=== PATIENT | female | born 1970 | race Caucasian/White ===

== ENCOUNTER → 2016-11-14 | Outpatient (CLI) | payer OTHER ==
[~2016-11-14] MED LIST: CLTP PO; FRRG PO; MEDLIST; PROM25TA PO; TETR250C3 PO
== END | disposition home or self-care (01) ==
LOC: C.PATHSPEC 14:27
PROVIDERS: ATTEND Dermatology
DX: C43.9 Malignant melanoma of skin, unspecified (principal); L82.1 Other seborrheic keratosis

== ENCOUNTER → 2017-03-15 | Outpatient (CLI) | payer OTHER | END | disposition home or self-care (01) | LOC: C.PAPS 09:09 | PROVIDERS: ATTEND Obstetrics & Gynecology | DX: Z12.4 Encounter for screening for malignant neoplasm of cervix (principal) ==